=== PATIENT | male | born 1980 | race Caucasian/White ===

== ENCOUNTER 2020-07-15 07:09 | Emergency (ER) | payer SELFPAY ==
[2020-07-15] MEDS ORDERED: CLINDAMYCIN 900MG/D5W 900 MG/50 ML IVPB IV ONE (07:53)
[2020-07-15] MEDS ORDERED: levoFLOXacin 750 MG TAB ONE (07:53)
--- NOTE | 2020-07-15 08:56 | RAD REPORT ---
EXAM DESCRIPTION: CT - Soft Tissue Neck W/Contr CLINICAL HISTORY: jaaw/neck swelling;Facial pain Pain and swelling COMPARISON: No comparisons TECHNIQUE All CT scans are performed using dose optimization technique as appropriate and may includ e automated exposure control or mA/KV adjustment according to patient size. FINDINGS: There is a large amount of left-sided facial swelling adjacent to the left mandibular santhosh s. There are periapical abscesses along the left molars measuring 10 mm and 7 mm. Left-sided odontoge liat periosteal abscess is present measuring 17 x 5 mm, along the buccal surface of the left mandibula r ramus. Enlarged presumably reactive lymph nodes are present the left submandibular region in the the largest measuring 23 x 8 mm. IMPRESSION: Left molar periapical abscesses and subperiosteal abscess along the left buccal surface of the mandibular ramus as detailed. There is significant inflammatory changes along the left aspect of the face and jaw related to this.
--- NOTE | 2020-07-15 11:08 | ER ---
Nurse's Notes [facility] Name: Reuben Carbajal Age: 40 yrs Sex: Male : 1980 Arrival Date: 07/15/2020 Time: 07:14 Bed 20 Private MD: Diagnosis: Dental Abscess with inflammatory changes Presentation: 07/15 07:21 Chief complaint: Patient states: L lower jaw tooth pain for 2 days. Swelling started ll1 today. No fever. Coronavirus screen: Client denies travel out of the [place] in the last 14 days. At this time, the client does not indicate any symptoms associated with coronavirus-19. Ebola Screen: Patient denies travel to an Ebola-affected area in the 21 days before illness onset. Initial Sepsis Screen: Does the patient meet any 2 criteria? HR > 90 bpm. No. Patient's initial sepsis screen is negative. Does the patient have a suspected source of infection? Yes: Other: tooth pain/jaw swelling. Risk Assessment: Do you want to hurt yourself or someone else? Patient reports no desire to harm self or others. Onset of symptoms was July 14, 2020. 07:21 Method Of Arrival: Ambulatory ll1 07:21 Acuity: AMADOR 4 ll1 07:40 Acuity: AMADOR 3 jd3 Historical: - Allergies: 07:21 No Known Allergies; ll1 - PMHx: 07:21 None; ll1 - PSHx: 07:21 Hernia repair; Right hand Boxer fracture repair; ll1 - Immunization history:: Flu vaccine is not up to date. - Social history:: Smoking status: Patient reports the use of cigarette tobacco products, smokes one pack cigarettes per day. Screenin:43 Abuse screen: Denies threats or abuse. Nutritional screening: No deficits noted. jd3 Tuberculosis screening: No symptoms or risk factors identified. Fall Risk Ambulatory Aid- None/Bed Rest/Nurse Assist (0 pts). Gait- Normal/Bed Rest/Wheelchair (0 pts) Mental Status- Oriented to own ability (0 pts). Total Chavez Fall Scale indicates No Risk (0-24 pts). Assessment: 07:42 General: Appears in no apparent distress. comfortable, Behavior is calm, cooperative, jd3 appropriate for age. Pain: Complains of pain in left jaw Quality of pain is described as sharp, tender. Neuro: Level of Consciousness is awake, alert, obeys commands, Oriented to person, place, time, situation. Cardiovascular: Denies chest pain, Capillary refill < 3 seconds Patient's skin is warm and dry. Respiratory: Airway is patent Respiratory effort is even, unlabored, Respiratory pattern is regular, symmetrical, Denies cough, shortness of breath. GI: No signs and/or symptoms were reported involving the gastrointestinal system. : No signs and/or symptoms were reported regarding the genitourinary system. EENT: Poor dentition noted. Derm: Skin is intact, Skin is dry, Skin is normal, Skin temperature is warm. Musculoskeletal: Circulation, motion, and sensation intact. Range of motion: intact in all extremities. 08:28 Reassessment: Patient appears in no apparent distress at this time. No changes from jd3 previously documented assessment. Patient and/or family updated on plan of care and expected duration. Pain level reassessed. Patient is alert, oriented x 3, equal unlabored respirations, skin warm/dry/pink. 09:30 Reassessment: Patient appears in no apparent distress at this time. No changes from jd3 previously documented assessment. Patient and/or family updated on plan of care and expected duration. Pain level reassessed. Patient is alert, oriented x 3, equal unlabored respirations, skin warm/dry/pink. 10:30 Reassessment: Patient appears in no apparent distress at this time. No changes from jd3 previously documented assessment. Patient and/or family updated on plan of care and expected duration. Pain level reassessed. Patient is alert, oriented x 3, equal unlabored respirations, skin warm/dry/pink. 11:27 Reassessment: Patient appears in no apparent distress at this time. Patient and/or jd3 family updated on plan of care and expected duration. Pain level reassessed. Patient is alert, oriented x 3, equal unlabored respirations, skin warm/dry/pink. Vital Signs: 07:21 BP 168 / 110; Pulse 94; Resp 17; Temp 98.3; Pulse Ox 97% on R/A; Weight 83.91 kg; ll1 Height 6 ft. 0 in. (182.88 cm); 08:28 BP 168 / 99; Pulse 98; Resp 17 S; Pulse Ox 97% on R/A; jd3 11:28 BP 150 / 100; Pulse 91; Resp 17 S; Pulse Ox 98% on R/A; jd3 07:21 Body Mass Index 25.09 (83.91 kg, 182.88 cm) ll1 ED Course: 07:14 Patient arrived in ED. bp1 07:16 Yadiel Pedersen MD is Attending Physician. kdr 07:20 Kevyn Casarez, RN is Primary Nurse. jd3 07:20 Arm band placed on Patient placed in an exam room, on a stretcher. ll1 07:25 Triage completed. ll1 07:41 Inserted saline lock: 20 gauge in right antecubital area, using aseptic technique. jd3 07:43 Patient has correct armband on for positive identification. Bed in low position. Call jd3 light in reach. Side rails up X 1. Adult w/ patient. Pulse ox on. NIBP on. 08:14 CT Soft Tissue Neck W/contr In Process Unspecified. EDMS 11:06 Tone Moya MD is Referral Physician. kdr 11:06 Rigoberto Manuel MD is Referral Physician. kdr 11:06 Kenrick Reyes DDS is Referral Physician. kdr 11:28 No provider procedures requiring assistance completed. IV discontinued, intact, jd3 bleeding controlled, No redness/swelling at site. Pressure dressing applied. Administered Medications: 07:41 Drug: Clindamycin 900 mg Route: IVPB; Infused Over: 30 mins; Site: right antecubital; jd3 08:40 Follow up: Response: No adverse reaction; IV Status: Completed infusion jd3 07:41 Drug: LevaQUIN (levofloxacin) 750 mg Route: PO; jd3 08:40 Follow up: Response: No adverse reaction jd3 Outcome: 11:07 Discharge ordered by . kdr 11:29 Discharged to home ambulatory, with family. jd3 11:29 Condition: stable 11:29 Discharge instructions given to patient, Instructed on discharge instructions, follow up and referral plans. medication usage, Demonstrated understanding of instructions, follow-up care, medications, Prescriptions given X 4. 11:30 Patient left the ED. jd3 Signatures: Dispatcher [employer] EDWA Yadiel Pedersen MD MD kdr Kevyn Casarez, CHRISTOPHER RN jd3 Mars Moore RN RN ll1 Vani Nava bp1
--- NOTE | 2020-07-15 11:08 | EDPHYS ---
Physician Documentation [facility] Name: Reuben Carbajal Age: 40 yrs Sex: Male : 1980 Arrival Date: 07/15/2020 Time: 07:14 Bed 20 Private MD: ED Physician Yadiel Pedersen HPI: 07/15 07:30 This 40 yrs old Male presents to ER via Ambulatory with complaints of kdr Abscess, Jaw Pain. 07:30 The patient presents with an abscess of the left jaw, left cheek and left mandible, the kdr patient presents with a swollen area of the left jaw, left cheek, left mandible, left submandibular area, left posterior aspect of neck, left lateral aspect of neck and left anterior aspect of neck. Description: The affected area is moderate sized, irregular, raised, swollen, warm. Onset: The symptoms/episode began/occurred gradually, 2 day(s) ago. Possible cause(s): Dental abscess left mandible. Associated signs and symptoms: The patient has no apparent associated signs or symptoms. Modifying factors: the symptoms are alleviated by nothing, the symptoms are aggravated by touching, Chewing. Severity of symptoms: At their worst the symptoms were mild, moderate, just prior to arrival, in the emergency department the symptoms are unchanged. The patient has experienced similar episodes in the past, a few times. The patient has not recently seen a physician. The patient has taken three doses of Amoxicillin since yesterday - twice yesterday and one this morning. The abx is about a year old. The patient states that he had intense pain yesterday but then the pain improved but the swelling increased and has extended into his neck.. Historical: - Allergies: 07:21 No Known Allergies; ll1 - PMHx: 07:21 None; ll1 - PSHx: 07:21 Hernia repair; Right hand Boxer fracture repair; ll1 - Immunization history:: Flu vaccine is not up to date. - Social history:: Smoking status: Patient reports the use of cigarette tobacco products, smokes one pack cigarettes per day. ROS: 15:59 Constitutional: Negative for fever, chills, and weight loss, Eyes: Negative for injury, kdr pain, redness, and discharge, ENT: Negative for injury, pain, and discharge, Cardiovascular: Negative for chest pain, palpitations, and edema, Respiratory: Negative for shortness of breath, cough, wheezing, and pleuritic chest pain, Abdomen/GI: Negative for abdominal pain, nausea, vomiting, diarrhea, and constipation. 15:59 Neck: Positive for swelling, swollen nodes, tenderness, of the face, left posterior aspect of neck, left lateral aspect of neck and left anterior aspect of neck. Exam: 15:59 Constitutional: This is a well developed, well nourished patient who is awake, alert, kdr and in no acute distress. Eyes: Pupils equal round and reactive to light, extra-ocular motions intact. Lids and lashes normal. Conjunctiva and sclera are non-icteric and not injected. Cornea within normal limits. Periorbital areas with no swelling, redness, or edema. Chest/axilla: Normal chest wall appearance and motion. Nontender with no deformity. No lesions are appreciated. 15:59 Head/face: Noted is erythema, that is moderate, swelling, tenderness, that is mild, of the . 15:59 Neck: Trachea: no acute changes, ROM/movement: is normal, No current threat to airway and no trismus.. Vital Signs: 07:21 BP 168 / 110; Pulse 94; Resp 17; Temp 98.3; Pulse Ox 97% on R/A; Weight 83.91 kg; ll1 Height 6 ft. 0 in. (182.88 cm); 08:28 BP 168 / 99; Pulse 98; Resp 17 S; Pulse Ox 97% on R/A; jd3 11:28 BP 150 / 100; Pulse 91; Resp 17 S; Pulse Ox 98% on R/A; jd3 07:21 Body Mass Index 25.09 (83.91 kg, 182.88 cm) ll1 MDM: 11:07 Patient medically screened. kdr 11:09 ED course: PMPAware: No history. kdr 15:59 Data reviewed: vital signs, nurses notes, lab test result(s), radiologic studies. kdr Counseling: I had a detailed discussion with the patient and/or guardian regarding: the historical points, exam findings, and any diagnostic results supporting the discharge/admit diagnosis, lab results, radiology results, the need for outpatient follow up, There was no threat to the airway, no threat to airway or swallowing . 07/15 07:37 Order name: CT Soft Tissue Neck W/contr; Complete Time: 10:40 kdr Administered Medications: 07:41 Drug: Clindamycin 900 mg Route: IVPB; Infused Over: 30 mins; Site: right antecubital; jd3 08:40 Follow up: Response: No adverse reaction; IV Status: Completed infusion jd3 07:41 Drug: LevaQUIN (levofloxacin) 750 mg Route: PO; jd3 08:40 Follow up: Response: No adverse reaction jd3 Disposition: 07/15/20 11:07 Discharged to Home. Impression: Dental Abscess with inflammatory changes. - Condition is Stable. - Prescriptions for Amoxicillin 500 mg Oral Capsule - take 1 capsule by ORAL route every 8 hours for 10 days; 30 tablet. Clindamycin HCl 300 mg Oral Capsule - take 1 capsule by ORAL route every 6 hours for 10 days; 40 capsule. Pepcid 20 mg Oral Tablet - take 1 tablet by ORAL route once daily; 20 tablet. Tramadol 50 mg Oral Tablet - take 1 tablet by ORAL route every 8 hours as needed; 12 tablet. - Medication Reconciliation Form, Thank You Letter, Antibiotic Education, Prescription Opioid Use, Work release form form. - Follow up: Private Physician; When: 2 - 3 days; Reason: If symptoms return, Further diagnostic work-up, Recheck today's complaints, Continuance of care, Re-evaluation by your physician. Follow up: Tone Moya MD; When: 2 - 3 days; Reason: If symptoms return, Further diagnostic work-up, Recheck today's complaints, Continuance of care, Re-evaluation by your physician. Follow up: Rigoberto Manuel MD; When: 2 - 3 days; Reason: If symptoms return, Further diagnostic work-up, Recheck today's complaints, Continuance of care, Re-evaluation by your physician. Follow up: Kenrick Reyes DDS; When: 48 Hours; Reason: If symptoms return, Further diagnostic work-up, Recheck today's complaints, Continuance of care, Re-evaluation by your physician. Signatures: Dispatcher [employer] EDYadiel Bailey MD MD kdr Davies, Jonathon, RN RN jd3 Mars Moore RN RN ll1 Corrections: (The following items were deleted from the chart) 11:06 10:43 CBC+H.LAB.BRZ ordered. EDDC EDMS 11:07 10:43 BASIC METABOLIC PANEL+C.LAB.BRZ ordered. EDDC EDMS 11:30 11:07 07/15/2020 11:07 Discharged to Home. Impression: Dental Abscess with inflammatory jd3 changes. Condition is Stable. Forms are Medication Reconciliation Form, Thank You Letter, Antibiotic Education, Prescription Opioid Use. Follow up: Private Physician; When: 2 - 3 days; Reason: If symptoms return, Further diagnostic work-up, Recheck today's complaints, Continuance of care, Re-evaluation by your physician. Follow up: Tone Moya; When: 2 - 3 days; Reason: If symptoms return, Further diagnostic work-up, Recheck today's complaints, Continuance of care, Re-evaluation by your physician. Follow up: Rigoberto Manuel; When: 2 - 3 days; Reason: If symptoms return, Further diagnostic work-up, Recheck today's complaints, Continuance of care, Re-evaluation by your physician. Follow up: Kenrick Reyes; When: 48 Hours; Reason: If symptoms return, Further diagnostic work-up, Recheck today's complaints, Continuance of care, Re-evaluation by your physician. kdr
[2020-07-15 11:37] VITALS: TEMP 98.3
[2020-07-15 11:40] VITALS: BP 150/100; O2SAT 98
== END 2020-07-15 11:30 | disposition home or self-care (01) ==
LOC: ER 07:09
DX: K04.7 Periapical abscess without sinus (principal); F17.210 Nicotine dependence, cigarettes, uncomplicated
CPT/HCPCS: 70491; 96365; 99284; Q9967